=== PATIENT | male | born 1960 | race Caucasian/White ===

== ENCOUNTER 2021-02-07 22:24 | Inpatient (IN) | payer OTHER ==
[2021-02-08 00:19] LABS: BASOPHIL 0.4 % (0-2); EOSINOPHIL 3.5 % (0-5); HCT 39.3 % (42.0-52.0); HGB 13.1 g/dl (13.2-18.0); LYMPHOCYTE 21.7 % (15-48); MCH 29.6 pg (25.0-31.0); MCHC 33.3 g/dL (32.0-36.0); MCV 88.9 fL (78.0-100.0); MONOCYTE 7.3 % (0-12); MPV 10.9 fL (6.0-9.5); NEUTROPHIL 66.8 % (41-80); NRBC 0; PLT 174 K/uL (150-400); RBC 4.42 M/uL (4.70-6.00); RDW 12.7 % (11.5-14.0); WBC 9.3 K/uL (4.0-10.5)
[2021-02-08 00:49] LABS: BILIRUBIN - TOTAL 0.3 mg/dL (0.2-1.0); BUN/CREAT RATIO (CALC) 12.4 RATIO; CREATININE 1.13 mg/dL (0.67-1.17); GLOBULIN (CALCULATION) 3.7 g/dL; TOTAL PROTEIN 7.7 g/dL (6.4-8.2)
[2021-02-08 01:11] LABS: BILIRUBIN NEGATIVE (NEGATIVE); BLOOD NEGATIVE Ery/uL (NEGATIVE); CLARITY CLEAR (CLEAR); COLOR YELLOW (YELLOW); GLUCOSE (U) NORMAL (NORMAL); LEUKOCYTES NEGATIVE Leu/uL (NEGATIVE); NITRITE NEGATIVE (NEGATIVE); PROTEIN NEGATIVE (NEGATIVE); SPECIFIC GRAVITY 1.015 (1.001-1.030); UROBILINOGEN 0.2 mg/dL (0.2-1.0)
[2021-02-08 01:15] LABS: LACTIC ACID 1.8 mmol/L (0.4-1.9)
[2021-02-08 01:52] LABS: CORONAVIRUS 2019 SARS-COV-2 NEGATIVE (NEGATIVE); INFLUENZA A NAA NEGATIVE (NEGATIVE)
[2021-02-08] MEDS ORDERED: SEROQUEL XR150 MG PO (03:45)
--- NOTE | 2021-02-09 19:17 | NUR ---
SPOKE TO [facility]BER, STATED THAT THEY WERE GOING TO SEND OVER A MED RECONCILIATION LIST, ASKED ABOUT DISCHARGE PLANS, RELAYED MESSAGE THAT THERE WERE NO PLANS FOR DISCHARGE TODAY
--- NOTE | 2021-02-10 02:17 | NUR ---
DAYSHIFT NURSE 2 DAYS AGO CALLED [facility] WHERE THE PATIENT IS FROM FOR MED REC, THEY NEVER CALLED BACK. YESTERDAY A DAYSHIFT NURSE GOT [facility] OF [facility] AND THEY SAID THEY WOULD FAX OVER THE MED REC AFTER SHIFT CHAGE. WE RECIEVED NO MED REC. WE ARE STILL HAVING A DIFFICULT TIME CONTACTING [facility] AND GETTING THE PT'S MED REC
--- NOTE | 2021-02-11 10:00 | NUR ---
I have reviewed the assessment documented by the Student Nurse and agree with the findings.
[2021-02-11] MEDS ORDERED: PROAIR DIGIHAL90 MCG INH (12:04)
[2021-02-11] MEDS ORDERED: AZITHROMYCIN250 MG PO (12:04)
[2021-02-11] MEDS ORDERED: FLORANEX TABLE1 EACH PO (12:04)
[2021-02-11] MEDS ORDERED: DULERA 200 MCG8.8 GM INH (12:04)
[2021-02-11] MEDS ORDERED: MEDROL 4MG DOSEP4 MG PO (12:04)
== END 2021-02-11 12:49 | disposition home or self-care (01) | DRG 190 ==
LOC: FER 22:24 → FMS 02-08 02:48
PROVIDERS: Emergency Medicine Emergency Medical Services; ADMIT Internal Medicine
DX: J44.1 Chronic obstructive pulmonary disease with (acute) exacerbation (principal); J18.9 Pneumonia, unspecified organism; J44.0 Chronic obstructive pulmonary disease with (acute) lower respiratory infection; I10 Essential (primary) hypertension; Z20.822 Contact with and (suspected) exposure to COVID-19; F41.9 Anxiety disorder, unspecified; F17.210 Nicotine dependence, cigarettes, uncomplicated; Z98.890 Other specified postprocedural states
CPT/HCPCS: 36415; 36600; 71045; 80053; 81003; 82150; 82803; 83605; 84145; 84484; 85025; 87040; 87088; 93005; 94010; 94640; 94664; 94760; 94762; J0456; J0696; J1650; J1885; J2543; J2920; J7030; J7050; J7512; U0002